=== PATIENT | female | born 1940 | race Two or more races ===

== ENCOUNTER 2025-05-01 10:23 | Emergency (ER) | payer OTHER ==
[~2025-05-01] VITALS: Ht 152.4 cm; Wt 75.7 kg
[2025-05-01] MEDS ORDERED: SYNTHROID50 MCG PO (10:38)
[2025-05-01] MEDS ORDERED: ROSUVASTATIN CAL5 MG PO (10:38)
[2025-05-01] MEDS ORDERED: PROTONIX40 M1 PO (10:38)
[2025-05-01] MEDS ORDERED: CELEBREX200MG PO (10:39)
[2025-05-01] MEDS ORDERED: KETOROLAC TROMETHAMINE 30 MG VIAL IM STA (11:02)
[2025-05-01 11:31] LABS: BASO % 0.5 % (0.1-1.2); EOS # 0.03 (0.04-0.54); EOS % 0.5 % (0.7-7.0); LYMPH # 1.44 (1.18-3.74); LYMPH % 25.4 % (19.3-53.1); MEAN PLATELET VOLUME 11.90 fl (9.4-12.4); MONO # 0.42 (0.24-0.82); MONO % 7.4 % (4.7-12.5); NEUT # 3.73 (1.56-6.13); NEUT % 66.0 % (34.0-71.1); RED CELL DISTRIBUTION WIDTH 16.2 % (11.6-14.4)
[2025-05-01 12:35] LABS: BUN CREA RATIO 16.0 (7.0-25.0); CREATININE SERUM 1.06 mg/dL (0.55-1.02); GFR 49.15; GLUCOSE FASTING 86.0 mg/dL (65-100); OSMOLALITY SERUM 282.0 MOSM/KG (275-295)
[2025-05-01] MEDS ORDERED: ACETAMINOPHEN500 M2 PO (13:46)
[2025-05-01] MEDS ORDERED: NEURONTIN300 MG PO (13:46)
[2025-05-01 14:07] VITALS: BP 155/67; O2SAT 98
== END 2025-05-01 14:10 | disposition home or self-care (01) ==
LOC: ER 12:30
PROVIDERS: General Practice
DX: L97.929 Non-pressure chronic ulcer of unspecified part of left lower leg with unspecified severity (principal); M79.605 Pain in left leg; E03.9 Hypothyroidism, unspecified; I87.2 Venous insufficiency (chronic) (peripheral); Z88.8 Allergy status to other drugs, medicaments and biological substances
CPT/HCPCS: 36415; 73590; 93971; 96372; 99284; J1885

== ENCOUNTER 2025-05-13 09:46 | Inpatient (IN) | payer OTHER ==
[~2025-05-13] VITALS: Ht 154.9 cm; Wt 105.7 kg
[~2025-05-13 09:46] MED LIST: ACETAMINOPHEN500 M2 PO; CELEBREX200MG PO; NEURONTIN300 MG PO; PROTONIX40 M1 PO; ROSUVASTATIN CAL5 MG PO; SYNTHROID50 MCG PO
[2025-05-13 11:27] LABS: BASO % 0.6 % (0.1-1.2); EOS # 0.05 (0.04-0.54); EOS % 1.0 % (0.7-7.0); LYMPH # 1.42 (1.18-3.74); LYMPH % 27.4 % (19.3-53.1); MEAN PLATELET VOLUME 11.40 fl (9.4-12.4); MONO # 0.26 (0.24-0.82); MONO % 5.0 % (4.7-12.5); NEUT # 3.42 (1.56-6.13); NEUT % 66.0 % (34.0-71.1); RED CELL DISTRIBUTION WIDTH 16.5 % (11.6-14.4)
[2025-05-13 11:31] LABS: ERYTHROCYTE SEDIMENTATION RATE 84 mm/hr (0-30)
[2025-05-13 12:10] LABS: URINE APPEARANCE Clear; URINE BILIRRUBIN Negative (NEGATIVE); URINE BLOOD Negative; URINE COLOR Yellow; URINE GLUCOSE Negative (NEGATIVE); URINE KETONE Negative (NEGATIVE); URINE LEUKOCYTE Negative; URINE NITRATE Negative; URINE PROTEIN Negative (NEGATIVE); URINE UROBILINOGEN 0.2 E.U./dl
[2025-05-13 12:14] LABS: URINE BACTERIA 4.8 uL (0.0-1933); URINE RBC 5.4 uL (0.0-20.8)
[2025-05-13 12:20] LABS: ALT/SGPT 43 U/L (12-78); AST/SGOT 44 U/L (15-37); BILIRUBIN TOTAL 0.55 mg/dL (0.3-1.2); BUN CREA RATIO 14 (7.0-25.0); CREATININE SERUM 0.96 mg/dL (0.55-1.02); GFR 55.11; GLOBULINA 4.4 G/DL (2.4-3.5); GLUCOSE FASTING 82 mg/dL (65-100); OSMOLALITY SERUM 279 MOSM/KG (275-295)
[2025-05-13 12:31] LABS: URINE CAST 0.00 uL (0.0-1.40); URINE EPITHELIAL CELLS 0.3 uL (0.0-38.8); URINE WBC 0.1 uL (0.0-23.2)
[2025-05-13] MEDS ORDERED: CLINDAMYCIN PHOSPHATE 600 MG in DEXTROSE 5 % IN WATER 50 ML IV SCH (18:24)
[2025-05-13] MEDS ORDERED: levoFLOXacin IN DEXTROSE 5 % 150 ML IV SCH (18:25)
[2025-05-13] MEDS ORDERED: FAMOTIDINE/PF 20 MG in 0.9 % SODIUM CHLORIDE 8 ML IV PUSH SCH (18:25)
[2025-05-13] MEDS ORDERED: 0.9 % SODIUM CHLORIDE 1,000 ML IV SCH (18:30)
[2025-05-13] MEDS ORDERED: ONDANSETRON HCL 4 MG in 0.9 % SODIUM CHLORIDE 50 ML IV PRN (18:30)
[2025-05-13] MEDS ORDERED: ACETAMINOPHEN 500 MG GEL..CAP PO PRN (18:30)
[2025-05-13 19:53] LABS: INR 0.94
[2025-05-14 01:52] VITALS: BP 129/83; O2SAT 99
[2025-05-14 08:38] VITALS: BP 139/74; O2SAT 97
[2025-05-14] MEDS ORDERED: RIFAMPIN 300 MG CAPSULE PO SCH (09:00)
[2025-05-14] MEDS ORDERED: ENOXAPARIN SODIUM 40 MG/0.4 ML SYRINGE SUBCUTANEO SCH (09:00)
[2025-05-14] MEDS ORDERED: LACTOBACILLUS ACIDOPHILUS 1 CAP CAP PO SCH (09:00)
[2025-05-14] MEDS ORDERED: ROSUVASTATIN CALCIUM 10 MG TABLET PO SCH (09:00)
[2025-05-14] MEDS ORDERED: BENZOCAINE/MENTHOL 90 ML BOTTLE TOP SCH (13:00)
[2025-05-14 17:32] VITALS: BP 120/76; O2SAT 96
[2025-05-15 02:36] VITALS: BP 124/72; O2SAT 97
[2025-05-15 08:04] VITALS: BP 163/63
[2025-05-15] MEDS ORDERED: CHLORHEXIDINE GLUCONATE 120 ML BOTTLE TOP SCH (09:00)
[2025-05-15] MEDS ORDERED: EMOLLIENTS 6 OZ BOTTLE TOP SCH (09:00)
[2025-05-15] MEDS ORDERED: RIFAMPIN300 MG PO (10:26)
[2025-05-15] MEDS ORDERED: LEVOFLOXACIN750 MG PO (10:27)
[2025-05-15] MEDS ORDERED: INTESTINEX680 M1 PO (10:27)
== END 2025-05-15 13:04 | disposition home or self-care (01) | DRG 540 ==
LOC: ER 09:46 → MEDI 18:40
PROVIDERS: Emergency Medicine; General Practice; ADMIT Internal Medicine; ATTEND Internal Medicine
PROC: BQ3FZZZ Magnetic Resonance Imaging (MRI) of Left Lower Leg (ICD-10-PCS; principal; 2025-05-13)
DX: M86.172 Other acute osteomyelitis, left ankle and foot (principal); L03.116 Cellulitis of left lower limb

== ENCOUNTER 2025-06-17 09:12 | Emergency (ER) | payer OTHER ==
[~2025-06-17] VITALS: Ht 152.4 cm; Wt 49.0 kg
[~2025-06-17 09:12] MED LIST changes: +INTESTINEX680 M1 PO; +LEVOFLOXACIN750 MG PO; +RIFAMPIN300 MG PO
[2025-06-17] MEDS ORDERED: PROTONIX40 MG PO (09:32)
[2025-06-17] MEDS ORDERED: ALLERGY RELIEF10 M3 (09:32)
[2025-06-17] MEDS ORDERED: LEVALBUTEROL HCL 1.25 MG/3 ML SOLUTION IH SCH (10:15)
[2025-06-17] MEDS ORDERED: IPRATROPIUM BROMIDE 0.5 MG/2.5 ML AMPUL.NEB IH SCH (10:15)
[2025-06-17] MEDS ORDERED: IPRATROPIUM BROMIDE 0.5 MG/2.5 ML AMPUL.NEB IH ONE ×2 (10:20→11:37)
[2025-06-17] MEDS ORDERED: LEVALBUTEROL HCL 0.63 MG/3 ML SOLUTION IH ONE (10:21)
[2025-06-17 11:10] LABS: COVID-19 AG POSITIVE (NEGATIVE)
[2025-06-17 11:18] LABS: BASO % 0.4 % (0.1-1.2); EOS # 0.05 (0.04-0.54); EOS % 0.9 % (0.7-7.0); LYMPH # 1.31 (1.18-3.74); LYMPH % 23.5 % (19.3-53.1); MEAN PLATELET VOLUME 11.90 fl (9.4-12.4); MONO # 0.67 (0.24-0.82); MONO % 12.0 % (4.7-12.5); NEUT # 3.51 (1.56-6.13); NEUT % 63.0 % (34.0-71.1); RED CELL DISTRIBUTION WIDTH 15.8 % (11.6-14.4)
[2025-06-17] MEDS ORDERED: LEVALBUTEROL HCL 1.25 MG/3 ML SOLUTION IH ONE (11:37)
[2025-06-17] MEDS ORDERED: AZITHROMYCIN500 MG PO (12:41)
[2025-06-17] MEDS ORDERED: ACETAMINOPHEN500 M1 PO (12:41)
[2025-06-17] MEDS ORDERED: GILTUSS COUGH-118 M1 PO (12:41)
[2025-06-17] MEDS ORDERED: PAXLOVID 300-11 EAC1 PO (12:41)
== END 2025-06-17 14:26 | disposition home or self-care (01) ==
LOC: ER 09:12 → EDBD 09:12 → ER 10:51
PROVIDERS: Preventive Medicine Public Health & General Preventive Medicine
DX: U07.1 COVID-19 (principal); E03.9 Hypothyroidism, unspecified; Z88.8 Allergy status to other drugs, medicaments and biological substances; Z87.09 Personal history of other diseases of the respiratory system